=== PATIENT | female | born 1965 | race Caucasian/White ===

== ENCOUNTER → 2019-07-30 12:55 | Outpatient (BNVA) | payer OTHER, SELFPAY | PROVIDERS: Family Provider Family Medicine; PCP Family Medicine; Visit Provider Specialist | DX: F32.9 Major depressive disorder, single episode, unspecified (principal); G47.52 REM sleep behavior disorder; Z87.891 Personal history of nicotine dependence | CPT/HCPCS: 99214 ==

== ENCOUNTER 2019-08-09 13:16 | Emergency (ER) | payer OTHER, SELFPAY ==
[2019-08-09 13:23] VITALS: BP 173/112; PULSE 105; RESP 18; TEMP 36.6; O2SAT 94; BMI 37.8
[2019-08-09 13:40] LABS: Glucose Point of Care 369 mg/dL (70-110)
--- NOTE | 2019-08-09 14:06 | ED_ITS ---
HPI - General Adult General: Chief complaint: General Medical Stated complaint: high blood sugar Time Seen by Provider: 08/09/19 13:28 Source: patient Mode of arrival: ambulatory Limitations: no limitations History of Present Illness: HPI narrative: Patient is a 54-year-old female who presents to ED today after she was called by [facility] in [place] due to abnormalities on her preop lab work. Patient tells me she was scheduled to have a meniscus repaired on her left knee and had preop labs performed a few days ago. She was called today and told her blood glucose was 444. Patient has no history of diabetes. She does state her mother was recently diagnosed with diabetes. She does state several years ago she believes she might have been diagnosed with prediabetes and at one point was taking metformin however is no longer taking this. When asked patient has noticed an increase in thirst over the past several weeks, trouble concentrating, increased fatigue, one episode of vomiting. Onset (ago): week(s) Associated symptoms: Reports vomiting (x1); Deny chest pain, dyspnea, headache(s), malaise, nausea, rash, palpitations or syncope Review of Systems Const: Reports: fatigue; Denies: fever(s), chills, body aches, change in appetite, change in weight or malaise Eyes: Denies: change in vision, blurry vision, blind spots, photophobia, floaters or seeing flashes ENMT: Denies: throat pain, enlarged tonsils or odynophagia Card: Denies: chest pain, palpitations, irregular heart rhythm, edema, swelling of feet/ankles, lightheadedness, syncope, pre-syncope, dyspnea on exertion or orthopnea Resp: Denies: dyspnea, productive cough, non-productive cough, hemoptysis or chest congestion GI: Reports: vomiting (x1); Denies: abdominal pain, nausea, dysphagia, diarrhea or constipation : Denies: flank pain, difficulty voiding, dysuria, urinary frequency, urinary urgency or urinary hesitancy Musc: Denies: neck pain or back pain Skin/Breast: Denies: rash Neuro: Denies: headache(s), numbness in extremities or weakness in extremities Endo: Reports: polydipsia and tired all the time PFS ED PFSH: Family History Other Bleeding disorder CAD (coronary artery disease) Cancer Diabetes Hypertension Social History Smoking and tobacco status: light tobacco smoker Alcohol intake: never Physical Exam Const: COMMON NORMALS: no acute distress, patient oriented x3, no limitations and alert NUTRITIONAL APPEARANCE: obese ORIENTATION/CONSCIOUSNESS: Yes oriented to person, Yes oriented to place and Yes oriented to time Resp: COMMON NORMALS: normal respiratory effort and clear to auscultation bilaterally AUSCULTATION: clear to auscultation bilaterally Cardio: COMMON NORMALS: regular rate and regular rhythm RATE: regular rate RHYTHM: regular rhythm GI: COMMON NORMALS: Normal to inspection, nondistended, normoactive bowel sounds present, Soft to palpation, non-tender, No hepatosplenomegaly present and no masses PALPATION: Yes Soft to palpation and Yes No hepatosplenomegaly present Extremity: COMMON NORMALS: normal to inspection, full ROM, no clubbing, cyanosis or edema and no pedal edema Neuro: LINDA COMA SCALE: document GCS findings [place] coma scale eye opening: Spontaneous Linda coma scale verbal response: Orientated Linda coma scale motor response: Obey commands Linda coma scale total score: 15 COMMON NORMALS: patient oriented x3, CN's II-XII intact bilaterally, moves all extremities, no focal motor deficits, no sensory deficits noted and gait normal SENSORIUM/ORIENTATION: Yes alert, Yes oriented to person, Yes oriented to place and Yes oriented to time Skin: COMMON NORMALS: no rashes or lesions noted GENERAL SKIN EXAM: no rashes or lesions noted Course Vital Signs: Vital signs: Vital Signs Temperature 97.9 F 08/09/19 13:23 Pulse Rate 94 08/09/19 17:22 Respiratory Rate 14 08/09/19 17:22 Blood Pressure 125/94 08/09/19 17:22 Pulse Oximetry 97 08/09/19 17:22 MDM - General Adult MDM Narrative: Medical decision making narrative: Patient is a newly diagnosed type II diabetic. She has no signs of DKA on her work-up today. She was given 10 units of insulin and a liter of fluids. Glucose now in the 340s. Her hemoglobin A1c was over 12. I will go ahead and start patient on metformin twice daily. Discussed with her that it is imperative she follow-up with primary care as they need to write her for a glucometer and test strips and they will need to adjust patient's medications accordingly. Patient verbalized understanding. Lab Data: Labs: Lab Results 08/09/19 08/09/19 08/09/19 Range/Units 13:37 14:14 14:14 WBC 4.5 (4.0-10.0) 10^3/ uL RBC 4.52 (4.1-5.3) 10^6/u L Hgb 12.9 (11.5-15.3) g/dL Hct 39.5 (37.0-47.0) % MCV 87.4 (81-99) fL MCH 28.5 (28.0-34.0) pg MCHC 32.7 (30.0-36.0) g/dL RDW 12.2 (12.1-15.1) % Plt Count 202 (130-400) 10^3/c mm MPV 10.9 H (7.4-10.4) fL Neut % (Auto) 58.0 % Lymph % (Auto) 34.5 % Hardee % (Auto) 7.3 % Eos % (Auto) 0.0 % Baso % (Auto) 0.0 % Neut # (Auto) 2.6 (1.8-7.7) 10^3/u L Lymph # (Auto) 1.6 (0.8-4.8) 10^3/u L Hardee # (Auto) 0.3 (0.2-0.9) 10^3/u L Eos # (Auto) 0.0 (0.0-0.8) 10^3/u L Baso # (Auto) 0.0 (0.0-0.1) 10^3/u L Nucleated RBC % (a uto) 0 % Nucleated RBCs # 0.0 /100WBC Specimen Type Sample Site ABG pH (7.35-7.45) ABG pCO2 (35-45) mmHg ABG pO2 (80.0-100.0) mmH g ABG HCO3 (22-26) mmol/L ABG O2 Saturation ABG Base Excess (-2.0-2.0) mmol/ L Chato Test A-a O2 Gradient (5-10) mmHg Hematocrit (37-47) % Hgb O2 Saturation (95-100) % Carboxyhemoglobin (0.4-20.1) %THgb Methemoglobin (0.4-1.5) % Total Hemoglobin (12-16) g/dL Ionized Calcium (1.1-1.4) mmol/L O2 Delivery Device FiO2 % Wood Milling Machine Hand ID Sodium 134 L (136-145) mmol/L Potassium 4.4 (3.5-5.1) mmol/L Chloride 97 L (98-107) mmol/L Carbon Dioxide 23 (22-29) mmol/L Anion Gap 18.4 (5-19) BUN 7 (6-20) mg/dL Creatinine 1.0 H (0.5-0.9) mg/dL GFR Calculation 57.8 L (90-130) mL/min Glucose 388 H (65-115) mg/dL POC Glucose 369 (70-110) mg/dL Estimat Average Gl ucose Hemoglobin A1c (4.0-6.0) % Calculated Osmolal ity 290 (285-295) mOsm/k g Calcium 9.5 (8.5-10.5) mg/dL Total Bilirubin 0.3 (0.15-1.2) mg/dL AST 24 (0-32) U/L ALT 29 (0-33) U/L Alkaline Phosphata se 94 (35-105) IU/L Total Protein 6.9 (6.6-8.7) g/dL Albumin 4.0 (3.5-5.2) g/dL Globulin 2.9 (1.3-4.6) g/dL Serum Ketones (Negative) 08/09/19 08/09/19 08/09/19 Range/Units 14:14 14:14 14:30 WBC (4.0-10.0) 10^3/ uL RBC (4.1-5.3) 10^6/u L Hgb (11.5-15.3) g/dL Hct (37.0-47.0) % MCV (81-99) fL MCH (28.0-34.0) pg MCHC (30.0-36.0) g/dL RDW (12.1-15.1) % Plt Count (130-400) 10^3/c mm MPV (7.4-10.4) fL Neut % (Auto) % Lymph % (Auto) % [place]ee % (Auto) % Eos % (Auto) % Baso % (Auto) % Neut # (Auto) (1.8-7.7) 10^3/u L Lymph # (Auto) (0.8-4.8) 10^3/u L [place]ee # (Auto) (0.2-0.9) 10^3/u L Eos # (Auto) (0.0-0.8) 10^3/u L Baso # (Auto) (0.0-0.1) 10^3/u L Nucleated RBC % (a uto) % Nucleated RBCs # /100WBC Specimen Type Arterial Sample Site Radial, left ABG pH 7.38 (7.35-7.45) ABG pCO2 40.9 (35-45) mmHg ABG pO2 67.0 L (80.0-100.0) mmH g ABG HCO3 24.0 (22-26) mmol/L ABG O2 Saturation 93.9 ABG Base Excess -1.2 (-2.0-2.0) mmol/ L Chato Test Pos A-a O2 Gradient 31.0 H (5-10) mmHg Hematocrit 39.3 (37-47) % Hgb O2 Saturation 92.1 L (95-100) % Carboxyhemoglobin 0.8 (0.4-20.1) %THgb Methemoglobin 1.0 (0.4-1.5) % Total Hemoglobin 12.8 (12-16) g/dL Ionized Calcium 1.2 (1.1-1.4) mmol/L O2 Delivery Device Room air FiO2 21.0 % Wood Milling Machine Hand ID cak Sodium 135.0 (136-145) mmol/L Potassium 4.3 (3.5-5.1) mmol/L Chloride (98-107) mmol/L Carbon Dioxide (22-29) mmol/L Anion Gap (5-19) BUN (6-20) mg/dL Creatinine (0.5-0.9) mg/dL GFR Calculation (90-130) mL/min Glucose 402.0 H (65-115) mg/dL POC Glucose (70-110) mg/dL Estimat Average Gl ucose 321 Hemoglobin A1c 12.8 H (4.0-6.0) % Calculated Osmolal ity (285-295) mOsm/k g Calcium (8.5-10.5) mg/dL Total Bilirubin (0.15-1.2) mg/dL AST (0-32) U/L ALT (0-33) U/L Alkaline Phosphata se (35-105) IU/L Total Protein (6.6-8.7) g/dL Albumin (3.5-5.2) g/dL Globulin (1.3-4.6) g/dL Serum Ketones Negative (Negative) 08/09/19 08/09/19 Range/Units 15:45 16:59 WBC (4.0-10.0) 10^3/ uL RBC (4.1-5.3) 10^6/u L Hgb (11.5-15.3) g/dL Hct (37.0-47.0) % MCV (81-99) fL MCH (28.0-34.0) pg MCHC (30.0-36.0) g/dL RDW (12.1-15.1) % Plt Count (130-400) 10^3/c mm MPV (7.4-10.4) fL Neut % (Auto) % Lymph % (Auto) % [place] % (Auto) % Eos % (Auto) % Baso % (Auto) % Neut # (Auto) (1.8-7.7) 10^3/u L Lymph # (Auto) (0.8-4.8) 10^3/u L Hardee # (Auto) (0.2-0.9) 10^3/u L Eos # (Auto) (0.0-0.8) 10^3/u L Baso # (Auto) (0.0-0.1) 10^3/u L Nucleated RBC % (a uto) % Nucleated RBCs # /100WBC Specimen Type Sample Site ABG pH (7.35-7.45) ABG pCO2 (35-45) mmHg ABG pO2 (80.0-100.0) mmH g ABG HCO3 (22-26) mmol/L ABG O2 Saturation ABG Base Excess (-2.0-2.0) mmol/ L Chato Test A-a O2 Gradient (5-10) mmHg Hematocrit (37-47) % Hgb O2 Saturation (95-100) % Carboxyhemoglobin (0.4-20.1) %THgb Methemoglobin (0.4-1.5) % Total Hemoglobin (12-16) g/dL Ionized Calcium (1.1-1.4) mmol/L O2 Delivery Device FiO2 % Wood Milling Machine Hand ID Sodium (136-145) mmol/L Potassium (3.5-5.1) mmol/L Chloride (98-107) mmol/L Carbon Dioxide (22-29) mmol/L Anion Gap (5-19) BUN (6-20) mg/dL Creatinine (0.5-0.9) mg/dL GFR Calculation (90-130) mL/min Glucose (65-115) mg/dL POC Glucose 360 340 (70-110) mg/dL Estimat Average Gl ucose Hemoglobin A1c (4.0-6.0) % Calculated Osmolal ity (285-295) mOsm/k g Calcium (8.5-10.5) mg/dL Total Bilirubin (0.15-1.2) mg/dL AST (0-32) U/L ALT (0-33) U/L Alkaline Phosphata se (35-105) IU/L Total Protein (6.6-8.7) g/dL Albumin (3.5-5.2) g/dL Globulin (1.3-4.6) g/dL Serum Ketones (Negative) Discharge Plan Discharge Patient Disposition: Home, Self-Care Clinical Impression: New onset type 2 diabetes mellitus Condition: Stable Prescriptions: New metformin 500 mg tablet 500 mg PO BID Qty: 60 RF: 0 No Action estradiol 1 mg tablet 1 mg PO DAILY RF: 0 lisinopril 10 mg tablet 10 mg PO BID RF: 0 desloratadine 5 mg tablet 5 mg PO DAILY RF: 0 pantoprazole 40 mg tablet,delayed release (DR/EC) 40 mg PO DAILY RF: 0 simvastatin 10 mg tablet 10 mg PO DAILY RF: 0 coenzyme I06-ghwpdal E 100-100 mg-unit capsule PO RF: 0 fenofibrate 54 mg tablet 54 mg PO DAILY RF: 0 venlafaxine [Effexor XR] 37.5 mg capsule,extended release 24hr 37.5 mg PO DAILY RF: 0 venlafaxine 150 mg capsule,extended release 24hr 150 mg PO DAILY RF: 0 venlafaxine 75 mg capsule,extended release 24hr 75 mg PO DAILY RF: 0 levocetirizine [Allergy Relief (levocetirizin)] 5 mg tablet 5 mg PO DAILY RF: 0 memantine [Namenda] 10 mg tablet 10 mg PO BID Qty: 180 RF: 1 clonazepam [Klonopin] 2 mg tablet 2 mg PO DAILY Qty: 30 RF: 5 Discharge Orders: Discharge Order (Routine); Ordered 08/09/19 Ordered By: Yareli Harding Referrals: James Munoz MD [Primary Care Provider] - Patient Instructions: Type 2 Diabetes, Diabetes Mellitus Type 2 in Adults (ED) Activity Restrictions/Additional Instructions: We will start you on metformin today but as discussed it is imperative that you follow-up with primary care as they will need to further manage your sugars and adjust medications accordingly. 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
[2019-08-09 14:15] VITALS: BP 151/96; PULSE 102; RESP 15; O2SAT 96
[2019-08-09 14:30] LABS: Hematocrit 39.5 % (37.0-47.0); Hemoglobin 12.9 g/dL (11.5-15.3); Lymphocytes # 1.6 10^3/uL (0.8-4.8); Lymphocytes % 34.5 %; Mean Corpuscular HGB Conc 32.7 g/dL (30.0-36.0); Mean Corpuscular Hemoglobin 28.5 pg (28.0-34.0); Mean Corpuscular Volume 87.4 fL (81-99); Mean Platelet Volume 10.9 fL (7.4-10.4); Monocytes # 0.3 10^3/uL (0.2-0.9); Monocytes % 7.3 %; Neutrophils # 2.6 10^3/uL (1.8-7.7); Nucleated Red Blood Cells % 0 %; Platelet Count 202 10^3/cmm (130-400); Red Blood Count 4.52 10^6/uL (4.1-5.3); Red Cell Distribution Width 12.2 % (12.1-15.1); White Blood Count 4.5 10^3/uL (4.0-10.0)
[2019-08-09] MEDS: insulin regular-human 100 units/1 mL 5 UNIT IVP ×2 (14:31→16:14)
[2019-08-09] MEDS: sodium chloride 0.9% 1,000 ML 999 ML IV (14:31)
[2019-08-09 14:35] LABS: Ketone (Acetest) Serum Negative (Negative)
[2019-08-09 14:43] LABS: ABG PCO2 40.9 mmHg (35-45); ABG PH Result 7.38 (7.35-7.45); Arterial Blood Gas Hematocrit 39.3 % (37-47); Base Excess ABG -1.2 mmol/L (-2.0-2.0); Blood Gas Allen Test Pos; Blood Gas Sample Site Radial, left; Blood Gas Sample Type Arterial; Carboxyhemoglobin 0.8 %THgb (0.4-20.1); HGB O2 Sat 92.1 % (95-100); Ionized Calcium Level - ABG 1.2 mmol/L (1.1-1.4); Oxygen Device ROOM AIR; Oxygen Saturation ABG 93.9; Potassium Level - ABG 4.3 mmol/L (3.5-5.0); Total Hemoglobin 12.8 g/dL (12-16)
[2019-08-09 14:44] LABS: Alanine Aminotransferase 29 U/L (0-33); Alkaline Phosphatase 94 IU/L (35-105); Anion Gap 18.4 (5-19); Aspartate Amino Transferase 24 U/L (0-32); Blood Urea Nitrogen 7 mg/dL (6-20); Calcium 9.5 mg/dL (8.5-10.5); Carbon Dioxide 23 mmol/L (22-29); Chloride 97 mmol/L (98-107); Globulin 2.9 g/dL (1.3-4.6); Glomerular Filtration Rate 57.8 mL/min (90-130); Glucose 388 mg/dL (65-115); Osmolality Calculated 290 mOsm/kg (285-295); Potassium 4.4 mmol/L (3.5-5.1); Sodium 134 mmol/L (136-145); Total Bilirubin 0.3 mg/dL (0.15-1.2); Total Protein 6.9 g/dL (6.6-8.7)
[2019-08-09 15:49] LABS: Glucose Point of Care 360 mg/dL (70-110)
[2019-08-09 16:16] VITALS: BP 139/91; PULSE 96; RESP 14; O2SAT 98
[2019-08-09 17:02] LABS: Glucose Point of Care 340 mg/dL (70-110)
[2019-08-09 17:15] LABS: Estmated Average Glucose 321; Hemoglobin A1C 12.8 % (4.0-6.0)
[2019-08-09 17:22] VITALS: BP 125/94; PULSE 94; RESP 14; O2SAT 97
== END 2019-08-09 17:22 | disposition home or self-care (01) ==
PROVIDERS: Emergency Provider Physician Assistant; PCP Family Medicine
DX: E11.9 Type 2 diabetes mellitus without complications (principal); F17.210 Nicotine dependence, cigarettes, uncomplicated
CPT/HCPCS: 12345; 36416; 36600; 80051; 80053; 82009; 82810; 82962; 83036; 83986; 85025; 96361; 96374; 96376; 99283; J1815; J7030

== ENCOUNTER → 2019-09-24 14:37 | Outpatient (BNVA) | payer OTHER, SELFPAY | PROVIDERS: PCP Family Medicine; Visit Provider Family Medicine | DX: E11.65 Type 2 diabetes mellitus with hyperglycemia (principal); I10 Essential (primary) hypertension | CPT/HCPCS: 80053 ==

== ENCOUNTER → 2019-10-23 09:11 | Outpatient (BNVA) | payer OTHER, SELFPAY | PROVIDERS: PCP Family Medicine; Visit Provider Family Medicine | DX: E11.65 Type 2 diabetes mellitus with hyperglycemia | CPT/HCPCS: 80048 ==

== ENCOUNTER → 2019-11-27 12:17 | Outpatient (BNVA) | payer OTHER, SELFPAY | PROVIDERS: PCP Family Medicine; Visit Provider Family Medicine | DX: E11.65 Type 2 diabetes mellitus with hyperglycemia (principal); I10 Essential (primary) hypertension; K21.9 Gastro-esophageal reflux disease without esophagitis; Z68.33 Body mass index [BMI] 33.0-33.9, adult; F17.211 Nicotine dependence, cigarettes, in remission | CPT/HCPCS: 80053; 83036 ==

== ENCOUNTER → 2019-12-31 11:39 | Outpatient (BNVA) | payer OTHER, SELFPAY | PROVIDERS: PCP Family Medicine; Visit Provider Nurse Practitioner Family | DX: Z11.59 Encounter for screening for other viral diseases (principal); J06.9 Acute upper respiratory infection, unspecified; Z20.828 Contact with and (suspected) exposure to other viral communicable diseases | CPT/HCPCS: 87635 ==

== ENCOUNTER → 2020-02-04 14:58 | Outpatient (BNVA) | payer OTHER, SELFPAY | PROVIDERS: PCP Family Medicine; Visit Provider Specialist | DX: G47.52 REM sleep behavior disorder (principal); G43.009 Migraine without aura, not intractable, without status migrainosus; Z76.89 Persons encountering health services in other specified circumstances; Z87.891 Personal history of nicotine dependence | CPT/HCPCS: 99213 ==

== ENCOUNTER → 2020-03-10 10:45 | Outpatient (BNVA) | payer OTHER, SELFPAY | PROVIDERS: PCP Family Medicine; Visit Provider Family Medicine | DX: I10 Essential (primary) hypertension (principal); E78.2 Mixed hyperlipidemia; E11.9 Type 2 diabetes mellitus without complications | CPT/HCPCS: 80053; 80061; 81015; 82043; 83036; 85025 ==

== ENCOUNTER 2020-03-23 13:04 | Outpatient (CLI) | payer OTHER, SELFPAY ==
--- NOTE | 2020-03-23 13:08 | MM_ITS ---
WS: [id number] SCREENING DIGITAL MAMMOGRAM WITH CAD HISTORY: Breast Cancer Screening COMPARISON: 03/16/2017, 05/06/2015 Bilateral CC and MLO views submitted. Computer aided detection analyzed. Breast composition: The breasts are heterogeneously dense, which may obscure small masses. 13 mm nodu le is stable in the anterior lateral RIGHT breast. Since the most recent exam there are new nodules n oted best on the LEFT CC projection central to the nipple. Largest nodule measures 17 mm. These were not present on the most recent study but similar nodules were present on the study from 2013. There i s an additional 5 mm nodule in the medial inferior LEFT breast. Additional benign calcifications in e ach breast. MM/[place] [id number] IMPRESSION: BI-RADS: 0-Incomplete: Need additional imaging evaluation FOLLOW UP: Need Additional Imaging LEFT breast: Spot compression views (CC and MLO). True ML. Ultrasound to follow if abnormality persists.
== END 2020-03-23 13:05 | disposition home or self-care (01) ==
PROVIDERS: PCP Family Medicine; Visit Provider Obstetrics & Gynecology
DX: Z12.31 Encounter for screening mammogram for malignant neoplasm of breast (principal); N64.89 Other specified disorders of breast; N63.10 Unspecified lump in the right breast, unspecified quadrant
CPT/HCPCS: 77067

== ENCOUNTER 2020-04-24 07:54 | Outpatient (CLI) | payer OTHER, SELFPAY ==
--- NOTE | 2020-04-24 08:00 | MM_ITS ---
WS: [id number] ADDITIONAL VIEWS LEFT MAMMOGRAM LEFT BREAST ULTRASOUND, complete HISTORY: N63.0 - Unspecified lump in unspecified breast COMPARISON: 03/23/2020, 03/16/2017 and 01/04/2016 LEFT MAMMOGRAM: Spot compression views and true ML. There are multiple ill-defined and partially obscured nodules within the LEFT LEFT breast. The larges t at 11:00 with a maximum diameter of 2.1 cm. This area is new since the prior study. There are addit ional partially obscured nodules which are smaller in size in the upper inner quadrant and also later ally. Some of these have been present on prior studies. LEFT BREAST ULTRASOUND 2-D and color Doppler imaging submitted. The large nodule in the LEFT breast at 11:00, 2 cm from the nipple measures 1.8 x 0.9 x 1.5 cm and is a simple cyst. Several hypoechoic well-circumscribed nodules at 11:00, 2:00 and 6:00. These nodules are solid and hypoechoic with well circumscribed margins. 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 These are not simple cysts. Due to the multip licity and similar appearance suspect these are benign. MM/[place] [id number] IMPRESSION: BI-RADS: 2-Benign FOLLOW UP: 1 Year Follow-up
--- NOTE | 2020-04-24 08:45 | US_ITS ---
WS: [id number] ADDITIONAL VIEWS LEFT MAMMOGRAM LEFT BREAST ULTRASOUND, complete HISTORY: N63.0 - Unspecified lump in unspecified breast COMPARISON: 03/23/2020, 03/16/2017 and 01/04/2016 LEFT MAMMOGRAM: Spot compression views and true ML. There are multiple ill-defined and partially obscured nodules within the LEFT LEFT breast. The larges t at 11:00 with a maximum diameter of 2.1 cm. This area is new since the prior study. There are addit ional partially obscured nodules which are smaller in size in the upper inner quadrant and also later ally. Some of these have been present on prior studies. LEFT BREAST ULTRASOUND 2-D and color Doppler imaging submitted. The large nodule in the LEFT breast at 11:00, 2 cm from the nipple measures 1.8 x 0.9 x 1.5 cm and is a simple cyst. Several hypoechoic well-circumscribed nodules at 11:00, 2:00 and 6:00. These nodules are solid and hypoechoic with well circumscribed margins. 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 These are not simple cysts. Due to the multip licity and similar appearance suspect these are benign. US/[place] breast [place] complete [id number] IMPRESSION: BI-RADS: 2-Benign FOLLOW UP: 1 Year Follow-up
== END 2020-04-24 07:55 | disposition home or self-care (01) ==
LOC: RADSHAW 07:58
PROVIDERS: PCP Family Medicine; Visit Provider Obstetrics & Gynecology
DX: N63.22 Unspecified lump in the left breast, upper inner quadrant (principal)
CPT/HCPCS: 76641; 77065

== ENCOUNTER 2020-07-09 16:59 | Outpatient (CLI) | payer OTHER, SELFPAY ==
[2020-07-09 18:12] LABS: Alanine Aminotransferase 13 U/L (0-33); Albumin Level 4.2 g/dL (3.5-5.2); Alkaline Phosphatase 61 IU/L (35-105); Anion Gap 13.2 (5-19); Aspartate Amino Transferase 15 U/L (0-32); Blood Urea Nitrogen 12 mg/dL (6-20); Calcium 8.7 mg/dL (8.5-10.5); Carbon Dioxide 24 mmol/L (22-29); Chloride 105 mmol/L (98-107); Globulin 2.6 g/dL (1.3-4.6); Glomerular Filtration Rate 46.6 mL/min (90-130); Glucose 101 mg/dL (65-115); Osmolality Calculated 286 mOsm/kg (285-295); Potassium 4.2 mmol/L (3.5-5.1); Sodium 138 mmol/L (136-145); Total Bilirubin 0.3 mg/dL (0.15-1.2); Total Protein 6.8 g/dL (6.6-8.7)
[2020-07-09 19:59] LABS: Estmated Average Glucose 114; Hemoglobin A1C 5.6 % (4.0-6.0)
== END 2020-07-09 17:00 | disposition home or self-care (01) ==
PROVIDERS: PCP Family Medicine; Visit Provider Family Medicine
DX: E11.9 Type 2 diabetes mellitus without complications (principal)
CPT/HCPCS: 80053; 83036

== ENCOUNTER → 2020-08-05 15:14 | Outpatient (BNVA) | payer OTHER, SELFPAY | PROVIDERS: PCP Family Medicine; Visit Provider Specialist | DX: G47.52 REM sleep behavior disorder (principal); G43.009 Migraine without aura, not intractable, without status migrainosus; Z87.891 Personal history of nicotine dependence | CPT/HCPCS: 99213 ==

== ENCOUNTER → 2020-09-02 11:19 | Outpatient (BNVA) | payer OTHER, SELFPAY | PROVIDERS: PCP Family Medicine; Visit Provider Family Medicine | DX: E11.9 Type 2 diabetes mellitus without complications (principal); I10 Essential (primary) hypertension; E78.2 Mixed hyperlipidemia | CPT/HCPCS: 80048; 83036 ==

== ENCOUNTER → 2021-02-08 08:16 | Outpatient (BNVA) | payer OTHER, SELFPAY | PROVIDERS: PCP Family Medicine; Visit Provider Nurse Practitioner | DX: G47.52 REM sleep behavior disorder (principal); G31.84 Mild cognitive impairment of uncertain or unknown etiology | CPT/HCPCS: 99203; 99214 ==

== ENCOUNTER → 2021-03-03 10:19 | Outpatient (BNVA) | payer OTHER, SELFPAY | PROVIDERS: PCP Family Medicine; Visit Provider Family Medicine | DX: I10 Essential (primary) hypertension (principal); E78.2 Mixed hyperlipidemia; E11.9 Type 2 diabetes mellitus without complications | CPT/HCPCS: 80053; 80061; 82043; 83036; 85025 ==

== ENCOUNTER 2021-06-21 18:30 | Emergency (ER) | payer OTHER, SELFPAY ==
[2021-06-21 18:45] VITALS: BP 158/110; PULSE 92; RESP 18; TEMP 36.8; O2SAT 97; BMI 35.6
--- NOTE | 2021-06-21 18:52 | ECG_ITS ---
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 Measurements Intervals [place] Rate: 96 P: 75 [place]: 125 QRS: 52 QRSD: 81 T: 61 QT: 353 QTc: 448 Interpretive Statements SINUS RHYTHM NONSPECIFIC T-WAVE ABNORMALITY Compared to ECG 06/17/2018 16:05:50 T-wave abnormality now present Electronically Signed On 06-21-2021 22:00:21 CDT by Jame Sullivan M.D. [id number]
--- NOTE | 2021-06-21 18:52 | XRR_ITS ---
PROCEDURE INFORMATION: Exam: XR Chest Exam date and time: 06/21/2021 8:54 PM Age: 56 years old Clinical indication: Pain; Angina pectoris; Additional info: Cp TECHNIQUE: Imaging protocol: XR of the chest. Views: 1 view. COMPARISON: CR Chest 1 [place] [id number] 06/17/2018 4:12 PM FINDINGS: Lungs: Unremarkable. No consolidation. Pleural spaces: Unremarkable. No pleural effusion. No pneumothorax. Heart/Mediastinum: Unremarkable. No cardiomegaly. Bones/joints: Unremarkable. XR/XR chest 1V portable [id number] IMPRESSION: No change, unremarkable
--- NOTE | 2021-06-21 20:52 | ECG_ITS ---
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 Measurements Intervals [place] Rate: 94 P: 81 [place]: 138 QRS: 57 QRSD: 86 T: 71 QT: 366 QTc: 458 Interpretive Statements SINUS RHYTHM NONSPECIFIC T-WAVE ABNORMALITY Compared to ECG 06/21/2021 20:08:54 No significant changes Electronically Signed On 06-21-2021 22:04:03 CDT by Jame Sullivan M.D. [id number]
--- NOTE | 2021-06-21 21:24 | ED_ITS ---
HPI - General Adult General: Chief complaint: General Medical Stated complaint: High Blood Presure Time Seen by Provider: 06/21/21 21:17 Source: patient Mode of arrival: ambulatory Limitations: no limitations History of Present Illness: 56-year-old female who states that she has a history of high blood pressure takes 10 mg lisinopril twice a day for her blood pressure states over the last week its been running higher than normal. States been running in the 160s 170s been having some slight right-sided chest pain and mild headaches with it. She states that it has consistently been running higher than normal. She denies any worsening improving factors states the pain is mild in the right side her chest feels like a sore pain and worse with palpation denies severe headache denies any dyspnea. Associated symptoms: Reports chest pain and headache(s); Deny dyspnea, nausea, rash or vomiting Review of Systems Const: Denies: fever(s), chills, body aches or change in appetite Eyes: Denies: blurry vision or eye discomfort ENMT: Denies: throat pain or dental pain Card: Reports: chest pain Resp: Denies: dyspnea GI: Denies: abdominal pain, nausea, vomiting or diarrhea : Denies: dysuria Musc: Denies: neck pain or back pain Skin/Breast: Denies: rash Neuro: Reports: headache(s) Psych: Denies: depression Silverio/Lymph: Denies: easy bruising All/Imm: Denies: urticaria PFSH ED PFSH: Medical History Acute adjustment disorder with anxiety Atypical chest pain Cervical disc disorder Common migraine without intractability Controlled REM sleep behavior disorder GERD (gastroesophageal reflux disease) History of nonmelanoma skin cancer HTN (hypertension) Hyperlipidemia Hypersomnia Mild cognitive disorder Neck pain Obstructive sleep apnea Sprain of left ankle Surgical menopause Type 2 diabetes mellitus, without long-term current use of insulin Surgical History H/O breast surgery Excision of right breast mass H/O dilation and curettage 2008 H/O knee surgery H/O knee surgery H/O left knee surgery 05/2020- left meniscus repair H/O tubal ligation H/O: hysterectomy History of lumpectomy of both breasts History of nasal surgery History of tonsillectomy and adenoidectomy S/P endometrial ablation [employer]- Dr. Cohen 2008 Family History Family/Other Breast cancer paternal aunt Mother Diabetes Heart disease Hypertension Father Heart disease Brother Heart disease Sister Heart disease Social History Smoking and tobacco status: former smoker Alcohol intake: never Physical Exam Const: COMMON NORMALS: no acute distress, patient oriented x3 and healthy appearing HENMT: COMMON NORMALS: normocephalic and atraumatic HEAD & SCALP: normocephalic and atraumatic Eye: COMMON NORMALS: Equal, round and reactive pupils present and EOMs intact bilaterally PUPIL: Yes Equal, round and reactive pupils present Neck/C-Spine: COMMON NORMALS: full ROM and supple Chest: COMMONS NORMALS: normal inspection of the chest and normal palpation of entire chest wall Resp: COMMON NORMALS: normal respiratory effort, No retractions, No use of accessory muscles and clear to auscultation bilaterally AUSCULTATION: clear to auscultation bilaterally Cardio: COMMON NORMALS: regular rate, regular rhythm and No murmurs present (Cardio) RATE: regular rate RHYTHM: regular rhythm GI: COMMON NORMALS: Normal to inspection, nondistended, normoactive bowel sounds present, Soft to palpation, non-tender and no masses PALPATION: Yes Soft to palpation Extremity: COMMON NORMALS: normal to inspection and full ROM Neuro: COMMON NORMALS: patient oriented x3, moves all extremities and no focal motor deficits Psych: COMMON NORMALS: mental status grossly normal, Normal thought process present and cooperative THOUGHT PROCESS: Normal thought process present Skin: COMMON NORMALS: no rashes or lesions noted and no wounds GENERAL SKIN EXAM: no rashes or lesions noted Course Vital Signs: Vital signs: Vital Signs Temperature 98.2 F 06/21/21 18:45 Pulse Rate 94 06/21/21 21:42 Respiratory Rate 18 06/21/21 21:42 Blood Pressure 134/84 06/21/21 21:42 Pulse Oximetry 95 06/21/21 21:42 [facility] - General Adult Medical Decision Making Patient presents here with high blood pressure her chest pain here is atypical she is point tender on the right side of her chest reproduces her pain EKG x-ray and troponin are all normal we will start her on Norvasc she is to follow-up with PCP and return if worsening she understands agrees to plan. Lab Data : 06/21/21 21:37 06/21/21 21:37 Radiology Impressions Chest X-Ray 06/21/21 18:52 IMPRESSION: No change, unremarkable Laboratory Results WBC 6.7 10^3/uL (4.0-10.0) 06/21/21 21:37 RBC 4.65 10^6/uL (4.1-5.3) 06/21/21 21:37 Hgb 12.5 g/dL (11.5-15.3) 06/21/21 21:37 Hct 38.9 % (37.0-47.0) 06/21/21 21: MCV 83.7 fl (81-99) 06/21/21 21:37 MCH 26.9 pg (28.0-34.0) L 06/21/21 21: MCHC 32.1 g/dL (30.0-36.0) 06/21/21 21:37 RDW 13.2 % (12.1-15.1) 06/21/21 21:37 Plt Count 346 10^3/cmm (130-400) 06/21/21 21:37 MPV 9.8 fL (7.4-10.4) 06/21/21 21:37 Neut % (Auto) 46.8 % 06/21/21 21:37 Lymph % (Auto) 43.0 % 06/21/21 21:37 [place] % (Auto) 9.8 % 06/21/21 21:37 Eos % (Auto) 0.0 % 06/21/21 21:37 Baso % (Auto) 0.1 % 06/21/21 21:37 Neut # (Auto) 3.14 10^3/uL (1.8-7.7) 06/21/21 21:37 Lymph # (Auto) 2.9 10^3/uL (0.8-4.8) 06/21/21 21:37 [place] # (Auto) 0.7 10^3/uL (0.2-0.9) 06/21/21 21:37 Eos # (Auto) 0.0 10^3/uL (0.0-0.8) 06/21/21 21:37 Baso # (Auto) 0.0 10^3/uL (0.0-0.1) 06/21/21 21:37 Nucleated RBC % (auto) 0 % 06/21/21 21:37 Nucleated RBCs # 0.0 /100WBC 06/21/21 21:37 Sodium 136 mmol/L (136-145) 06/21/21 21:37 Potassium 4.0 mmol/L (3.5-5.1) 06/21/21 21:37 Chloride 101 mmol/L (98-107) 06/21/21 21:37 Carbon Dioxide 24 mmol/L (22-29) 06/21/21 21:37 Anion Gap 15.0 (5-19) 06/21/21 21:37 BUN 10 mg/dL (6-20) 06/21/21 21:37 Calcium 9.1 mg/dL (8.5-10.5) 06/21/21 21:37 Total Bilirubin 0.3 mg/dL (0.15-1.2) 06/21/21 21:37 AST 13 U/L (0-32) 06/21/21 21:37 ALT 13 U/L (0-33) 06/21/21 21:37 Alkaline Phosphatase 95 IU/L (35-105) 06/21/21 21:37 Troponin T Baseline 9 ng/L (0-10) 06/21/21 21:37 Total Protein 6.8 g/dL (6.6-8.7) 06/21/21 21:37 Albumin 4.3 g/dL (3.5-5.2) 06/21/21 21:37 Globulin 2.5 g/dL (1.3-4.6) 06/21/21 21:37 EKG Data EKG 1: I personally reviewed and interpreted this EKG as follows: EKG interpretation date: 06/21/21 EKG interpretation time: 21:58 Interpretation: nsr hr [address] or t wave abnormalities qrs 86 qtc 417 Computer generated interpretation: Chest X-Ray 06/21/21 18:52 IMPRESSION: No change, unremarkable Discharge Plan Discharge Patient Disposition: Home Clinical Impression: HTN (hypertension), Chest pain Condition: Stable Prescriptions: New Norvasc 5 mg tablet 5 mg PO DAILY Qty: 30 0RF No Action coenzyme [id number] E 100-100 mg-unit capsule 1 cap PO DAILY 0RF (DME) FreeStyle Mar 14 Day Sensor Kit See Rx Instructions .ROUTE .MEDSUPPLY Qty: 1 4RF Rx Instructions: As directed (DME) FreeStyle Mar 14 Day [place] Misc See Rx Instructions .ROUTE .MEDSUPPLY Qty: 1 0RF Rx Instructions: As directed brexpiprazole 0.5 mg tablet 0.5 mg PO DAILY Qty: 90 0RF azithromycin [Zithromax Z-Tyrone] 250 mg tablet See Rx Instructions PO .COMPLEX Qty: 6 0RF Rx Instructions: For 250 mg dose pack: take 500 mg today (day 1), then 250 mg for 4 days (days 2-5) PO estradiol 1 mg tablet 1 mg PO DAILY 90 Days Qty: 90 3RF simvastatin 20 mg tablet 20 mg PO DAILY 90 Days Qty: 90 1RF Ozempic 0.25 mg or 0.5 mg(2 mg/1.5 mL) pen injector 0.5 mg SUBCUT .once weekly 90 Days Qty: 3 1RF fenofibrate 54 mg tablet 54 mg PO DAILY 90 Days Qty: 90 1RF lisinopril 10 mg tablet 10 mg PO BID Qty: 180 1RF venlafaxine 150 mg capsule,extended release 24hr See Rx Instructions .ROUTE .COMPLEX Qty: 90 1RF Dose Instruction: TAKE 1 CAPSULE BY MOUTH EVERY DAY TAKE WITH 75MG Rx Instructions: TAKE 1 CAPSULE BY MOUTH EVERY DAY TAKE WITH 75MG venlafaxine 75 mg capsule,extended release 24hr See Rx Instructions .ROUTE .COMPLEX Qty: 90 1RF Dose Instruction: TAKE 1 CAPSULE BY MOUTH EVERY DAY Rx Instructions: TAKE 1 CAPSULE BY MOUTH EVERY DAY pantoprazole 40 mg tablet,delayed release (DR/EC) 40 mg PO BID 0RF clonazepam 2 mg tablet 2 mg PO BEDTIME 0RF memantine 10 mg tablet 10 mg PO BID 0RF levocetirizine 5 mg tablet 5 mg PO DAILY 0RF Discharge Orders: Discharge ED (Routine); Ordered 06/21/21 Ordered By: Heron Nam Referrals: Yessi Valenzuela DO [Primary Care Provider] - 1-3 days Discharge Diet: Advance as tolerated Discharge Activity: Resume usual activity Patient Instructions: Hypertension (ED) Coding Level of Care Code ED Ion Implant Machine Operator for Chg Fwd Exam Comprehensive
[2021-06-21 21:42] VITALS: BP 134/84; PULSE 94; RESP 18; O2SAT 95
[2021-06-21 21:47] LABS: Basophils % 0.1 %; Hematocrit 38.9 % (37.0-47.0); Hemoglobin 12.5 g/dL (11.5-15.3); Lymphocytes # 2.9 10^3/uL (0.8-4.8); Mean Corpuscular HGB Conc 32.1 g/dL (30.0-36.0); Mean Corpuscular Hemoglobin 26.9 pg (28.0-34.0); Mean Corpuscular Volume 83.7 fl (81-99); Mean Platelet Volume 9.8 fL (7.4-10.4); Monocytes # 0.7 10^3/uL (0.2-0.9); Monocytes % 9.8 %; Neutrophils # 3.14 10^3/uL (1.8-7.7); Neutrophils % 46.8 %; Nucleated Red Blood Cells % 0 %; Platelet Count 346 10^3/cmm (130-400); Red Blood Count 4.65 10^6/uL (4.1-5.3); Red Cell Distribution Width 13.2 % (12.1-15.1); White Blood Count 6.7 10^3/uL (4.0-10.0)
[2021-06-21 22:12] LABS: Alanine Aminotransferase 13 U/L (0-33); Albumin Level 4.3 g/dL (3.5-5.2); Alkaline Phosphatase 95 IU/L (35-105); Aspartate Amino Transferase 13 U/L (0-32); Blood Urea Nitrogen 10 mg/dL (6-20); Calcium 9.1 mg/dL (8.5-10.5); Carbon Dioxide 24 mmol/L (22-29); Chloride 101 mmol/L (98-107); Globulin 2.5 g/dL (1.3-4.6); Glomerular Filtration Rate 57.4 mL/min (90-130); Glucose 138 mg/dL (65-115); Osmolality Calculated 283 mOsm/kg (285-295); Sodium 136 mmol/L (136-145); Total Bilirubin 0.3 mg/dL (0.15-1.2); Total Protein 6.8 g/dL (6.6-8.7); Troponin(5th) Baseline 9 ng/L (0-10)
[2021-06-21 22:33] VITALS: BP 139/94; PULSE 92; RESP 18; O2SAT 95
== END 2021-06-21 22:34 | disposition home or self-care (01) ==
PROVIDERS: Emergency Provider Emergency Medicine; PCP Family Medicine
DX: I10 Essential (primary) hypertension (principal); R07.9 Chest pain, unspecified; Z87.891 Personal history of nicotine dependence
CPT/HCPCS: 71045; 80053; 84484; 85025; 93005; 96374; 99283

== ENCOUNTER → 2021-11-25 08:48 | Outpatient (BNVA) | payer BC, SELFPAY | PROVIDERS: PCP Family Medicine; Visit Provider Family Medicine | DX: I10 Essential (primary) hypertension (principal); F33.1 Major depressive disorder, recurrent, moderate; E11.9 Type 2 diabetes mellitus without complications; G47.52 REM sleep behavior disorder | CPT/HCPCS: 80048; 83036 ==

== ENCOUNTER 2022-04-15 05:42 | Day surgery (SDC) | payer BC, SELFPAY ==
[2022-04-13 12:10] VITALS: BMI 36.8
[2022-04-15 06:11] VITALS: BP 109/79; PULSE 76; RESP 18; TEMP 36.1; O2SAT 95
[2022-04-15] MEDS: sodium chloride 0.9% 1,000 ML 30 ML IV (06:16)
[2022-04-15 06:23] LABS: Glucose Point of Care 180 mg/dL (70-110)
--- NOTE | 2022-04-15 06:46 | W.PM.OPSUD ---
Surgery/Procedure H&P Update DATE OF PROCEDURE: April 15, 2022 DATE H&P PERFORMED: 04/05/22 PLANNED PROCEDURE: Operation Date: 04/15/22 07:00 Proposed Procedures p EGD 91615 Colon 10345 ,Z86.010,R19.7,K21.9(Not Applicable) - DO abdi Cabrera Colonoscopy(Not Applicable) - Estuardo Jimenez DO
--- NOTE | 2022-04-15 06:48 | P.ANESASSM_ITS ---
Pre-Anesthetic Assessment Height/Weight: Height 1.63 m Weight 97.522 kg Temp Pulse Resp BP Pulse Ox O2 Del Method 97 F L 76 18 109/79 95 04/15/22 06:11 04/15/22 06:11 04/15/22 06:11 04/15/22 06:11 04/15/22 06:11 04/15/22 06:11 Operation Date: 04/15/22 07:00 Proposed Procedures p EGD 90827 Colon 48040 ,Z86.010,R19.7,K21.9(Not Applicable) - Estuardo Jimenez DO s Colonoscopy(Not Applicable) - Estuardo Jimenez DO Was Beta Олег taken within 24 hours: Yes Was Clonidine taken within 24 hours: Yes Last intake: Intake Last Liquid Date 04/14/22 Last Liquid Time 20:00 Last Solid Date 04/13/22 Last Solid Time 18:00 Social No alcohol and No tobacco Exam alert, oriented x 3, clear to auscultation bilaterally and regular rate & rhythm Airway Submandibular: within normal limits Cervical ROM: within normal limits Mallampati: Class III History/ROS No significant history except as noted and No significant complaints Pulmonary Sleep Apnea noncompliant with cpap CV/HEM Hypertension Chronic Renal Failure Hepatic None reported GI Gastroesophageal Reflux Disease Metabolic Diabetes Mellitus, Hyperlipidemia and Morbid Obesity Neuropsych Anxiety and Depression Anesthetic Plan ASA status: 3 Anesthesia: Anesthesia Evaluation and MAC Risk of > 500 ml blood loss (7ml/kg in children): Yes, adequate IV access and fluids planned Medications/Allergies Home Medications Medication Instructions Recorded Confirmed Last Taken Type flash glucose scanning reader #1 ea 10/23/19 04/05/22 Unknown Rx (FreeStyle Mar 14 Day [place]) flash glucose sensor (FreeStyle #1 ea 10/23/19 04/05/22 Unknown Rx Mar 14 Day Sensor kit) coenzyme I50-[id number] E 100 mg-100 1 cap PO DAILY 01/27/20 04/13/22 04/14/22 History unit capsule clonidine HCl 0.1 mg tablet 0.1 mg PO TID PRN hypertensive 06/25/21 04/13/22 03/25/22 Rx emergency #20 tabs amlodipine 5 mg tablet 5 mg PO DAILY 90 days #90 tabs 11/25/21 04/13/22 04/15/22 05:20 Rx metoprolol tartrate 50 mg tablet 50 mg PO BID #180 tabs 11/25/21 04/13/22 04/15/22 05:20 Rx clonazepam 2 mg tablet 2 mg PO BEDTIME #30 tabs 02/11/22 04/13/22 04/14/22 Rx memantine 10 mg tablet 10 mg PO BID #180 tabs 04/01/22 04/13/22 04/14/22 Rx pantoprazole 40 mg tablet,delayed 40 mg PO BID #180 tabs 04/07/22 04/13/22 04/14/22 Rx release simvastatin 20 mg tablet 20 mg PO DAILY 90 days #90 tabs 04/07/22 04/13/22 04/14/22 Rx estradiol 1 mg tablet 1 mg PO DAILY 04/13/22 04/13/22 04/14/22 History fenofibrate 54 mg tablet 54 mg PO DAILY 04/13/22 04/13/22 04/14/22 History levocetirizine 5 mg tablet 5 mg PO DAILY 04/13/22 04/13/22 03/25/22 History lisinopril 10 mg tablet 10 mg PO BID 04/13/22 04/13/22 04/14/22 History semaglutide 0.25 mg or 0.5 mg (2 0.5 mg SUBCUT .WEEKLY 04/13/22 04/13/22 03/25/22 History mg/1.5 mL) subcutaneous pen injector (Ozempic) venlafaxine 150 mg 150 mg PO DAILY 04/13/22 04/13/22 04/15/22 05:20 History capsule,extended release 24 hr venlafaxine 75 mg capsule,extended 75 mg PO DAILY 04/13/22 04/13/22 04/15/22 05:20 History release 24 hr Allergies Allergy/AdvReac Type Severity Reaction Status Date / Time Sulfa (Sulfonamide Allergy Unknown Verified 04/13/22 12:04 Antibiotics) zonisamide Allergy rash Verified 04/13/22 12:04 Current Medications Generic Name Dose Route Start Last Admin Trade Name Freq PRN Reason Stop Dose Admin Sodium Chloride 1,000 mls @ 30 mls/hr 04/15/22 06:15 04/15/22 06:16 Sodium Chloride 0.9% IV 04/16/22 06:14 30 mls/hr .Q24H RAYO Administration PFSH Anesthesia Medical History (Updated 04/05/22 @ 10:06 by Estuardo Jimenez DO) Acute adjustment disorder with anxiety Atypical chest pain Cervical disc disorder Common migraine without intractability Controlled REM sleep behavior disorder GERD (gastroesophageal reflux disease) History of colon polyps History of nonmelanoma skin cancer HTN (hypertension) Hyperlipidemia Hypersomnia Mild cognitive disorder Neck pain Obstructive sleep apnea Sprain of left ankle Stage 3a chronic kidney disease (CKD) Surgical menopause Type 2 diabetes mellitus, without long-term current use of insulin Surgical History H/O breast surgery Excision of right breast mass H/O dilation and curettage 2008 H/O knee surgery H/O knee surgery H/O left knee surgery 05/2020- left meniscus repair H/O tubal ligation H/O: hysterectomy History of lumpectomy of both breasts History of nasal surgery History of tonsillectomy and adenoidectomy Hx of colonoscopy with polypectomy 7 yrs ago S/P endometrial ablation [employer]- Dr. Cohen 2008 Family History Family/Other Breast cancer paternal aunt Mother Diabetes Heart disease Hypertension Father Heart disease Brother Heart disease Sister Heart disease Social History Smoking and tobacco status: former smoker Alcohol intake: never Data Anesthesia Cardiac Studies: No Data to Display
[2022-04-15 07:33] VITALS: BP 98/66; PULSE 77; RESP 18; TEMP 36.2; O2SAT 96
[2022-04-15 07:49] VITALS: BP 106/72; PULSE 72; RESP 18; O2SAT 96
--- NOTE | 2022-04-15 12:51 | ANE.PACU2 ---
Inpatient post-anesthesia follow up: Airway intact: Yes Vital signs: Temperature 97.2 F Pulse Rate 72 Respiratory Rate 18 Blood Pressure 106/72 Pulse Oximetry 96 Oxygen Delivery Me thod Room Air Oxygen Flow Rate Fraction of Inspir ed Oxygen Hydration adequate: Yes Nausea and vomiting: No Pain level: 2 Mental status: Baseline
== END 2022-04-15 08:10 | disposition home or self-care (01) ==
PROVIDERS: PCP Family Medicine; Visit Provider Surgery
PROC: 0DJ08ZZ Inspection of Upper Intestinal Tract, Via Natural or Artificial Opening Endoscopic (ICD-10-PCS; CPT 43235; principal; 2022-04-15 07:00)
PROC: 0DJD8ZZ Inspection of Lower Intestinal Tract, Via Natural or Artificial Opening Endoscopic (ICD-10-PCS; CPT 45378; 2022-04-15 07:00)
DX: Z86.010 Personal history of colon polyps (principal); R19.7 Diarrhea, unspecified; K21.9 Gastro-esophageal reflux disease without esophagitis; K63.5 Polyp of colon; K29.50 Unspecified chronic gastritis without bleeding; B96.81 Helicobacter pylori [H. pylori] as the cause of diseases classified elsewhere; G47.30 Sleep apnea, unspecified; Z91.199 Patient's noncompliance with other medical treatment and regimen due to unspecified reason; I10 Essential (primary) hypertension; E11.9 Type 2 diabetes mellitus without complications; E78.5 Hyperlipidemia, unspecified; E66.01 Morbid (severe) obesity due to excess calories; Z68.36 Body mass index [BMI] 36.0-36.9, adult
CPT/HCPCS: 36416; 43239; 45380; 45385; 82274; 82962; 83630; 87493; 87506; 88305; 88342; J2704; J7030

== ENCOUNTER → 2022-04-22 09:27 | Outpatient (BNVA) | payer BC, SELFPAY | PROVIDERS: PCP Family Medicine; Visit Provider Family Medicine | DX: I10 Essential (primary) hypertension (principal); E78.2 Mixed hyperlipidemia; E11.9 Type 2 diabetes mellitus without complications; W19.XXXA Unspecified fall, initial encounter; Y92.009 Unspecified place in unspecified non-institutional (private) residence as the place of occurrence of the external cause | CPT/HCPCS: 80053; 80061; 82043; 83036; 85025 ==

== ENCOUNTER → 2022-05-29 12:28 | Outpatient (BNVA) | payer BC, SELFPAY | PROVIDERS: PCP Family Medicine; Visit Provider Nurse Practitioner Family | DX: N39.0 Urinary tract infection, site not specified (principal) | CPT/HCPCS: 81000 ==

== ENCOUNTER → 2022-06-16 16:18 | Outpatient (BNVA) | payer BC, SELFPAY | PROVIDERS: PCP Family Medicine; Visit Provider Family Medicine | DX: R30.0 Dysuria (principal) | CPT/HCPCS: 81000 ==

== ENCOUNTER 2022-08-15 13:59 | Emergency (ER) | payer BC, SELFPAY ==
[2022-08-15 14:03] VITALS: BP 137/88; PULSE 76; RESP 18; TEMP 36.4; O2SAT 98; BMI 38.0
--- NOTE | 2022-08-15 14:11 | ECG_ITS ---
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 Measurements Intervals [place] Rate: 74 P: 57 MN: 154 QRS: 22 QRSD: 84 T: 19 QT: 375 QTc: 418 Interpretive Statements SINUS RHYTHM LOW QRS VOLTAGE IN PRECORDIAL LEADS [QRS DEFLECTION < 1.0 mV IN CHEST LEADS] Compared to ECG 06/21/2021 21:58:19 Low QRS voltage now present T-wave abnormality no longer present Electronically Signed On 08-15-2022 16:27:13 CDT by Jame Sullivan M.D. [id number]
--- NOTE | 2022-08-15 14:11 | XRR_ITS ---
PROCEDURE INFORMATION: Exam: XR Chest Exam date and time: 08/15/2022 2:19 PM Age: 57 years old Clinical indication: Pain; Angina pectoris; Additional info: jessica Nguyen am TECHNIQUE: Imaging protocol: Radiologic exam of the chest. Views: 1 view. COMPARISON: CR XR chest 1V portable [id number] 06/21/2021 8:54 PM FINDINGS: Lungs: Unremarkable. No consolidation. Pleural spaces: Unremarkable. No pleural effusion. No pneumothorax. Heart/Mediastinum: Unremarkable. No cardiomegaly. Bones/joints: Visualized osseous structures show no acute abnormality. Other findings: No significant change with previous exam. XR/XR chest 1V [id number] IMPRESSION: No acute cardiopulmonary abnormality.
[2022-08-15 16:33] LABS: Hematocrit 40.6 % (37.0-47.0); Hemoglobin 12.8 g/dL (11.5-15.3); Lymphocytes # 2.8 10^3/uL (0.8-4.8); Lymphocytes % 42.3 %; Mean Corpuscular HGB Conc 31.5 g/dL (30.0-36.0); Mean Corpuscular Hemoglobin 27.3 pg (28.0-34.0); Mean Corpuscular Volume 86.6 fl (81-99); Mean Platelet Volume 10.4 fL (7.4-10.4); Monocytes # 0.6 10^3/uL (0.2-0.9); Monocytes % 9.4 %; Neutrophils # 3.19 10^3/uL (1.8-7.7); Neutrophils % 48.1 %; Nucleated Red Blood Cells % 0 %; Platelet Count 220 10^3/cmm (130-400); Red Blood Count 4.69 10^6/uL (4.1-5.3); Red Cell Distribution Width 13.1 % (12.1-15.1); White Blood Count 6.6 10^3/uL (4.0-10.0)
[2022-08-15 16:50] LABS: Troponin(5th) Baseline 6 ng/L (0-10)
[2022-08-15 16:59] LABS: Alanine Aminotransferase 13 U/L (0-33); Albumin Level 4.6 g/dL (3.5-5.2); Alkaline Phosphatase 63 U/L (35-105); Anion Gap 16.9 (5-19); Aspartate Amino Transferase 17 U/L (0-32); Blood Urea Nitrogen 17 mg/dL (6-20); Calcium 9.2 mg/dL (8.5-10.5); Carbon Dioxide 24 mmol/L (22-29); Chloride 101 mmol/L (98-107); Globulin 2.8 g/dL (1.3-4.6); Glomerular Filtration Rate 51.2 mL/min (90-130); Glucose 117 mg/dL (65-115); Osmolality Calculated 289 mOsm/kg (285-295); Potassium 3.9 mmol/L (3.5-5.1); Sodium 138 mmol/L (136-145); Thyroid Stimulating Hormone 2.05 uIU/mL (0.27-4.20); Total Bilirubin 0.2 mg/dL (0.15-1.2); Total Protein 7.4 g/dL (6.6-8.7)
[2022-08-15 18:00] VITALS: O2SAT 98
--- NOTE | 2022-08-15 18:39 | ED_ITS ---
HPI - Chest Pain General: Chief Complaint: Chest Pain Stated Complaint: sob & chest pain Time Seen by Provider: 08/15/22 18:27 History of Present Illness: Patient is a 57-year-old female who comes to the ED with chest pain. Chest pain started while she was laying down this morning and woke her up. Pain was located in the left upper chest and it radiated to the middle left chest. She says the pain was more severe when it first started and has waxed and waned throughout the day. He describes it as an aching pain with some sharp intensity on occasion. Currently here in the ED she rates the pain a 1 out of 10. Denies any tenderness to the chest. She states that pain worsens if she takes a deep breath or with certain movements of her torso. She reports having mild chest pain like this has been on and off for the past several months, but today the pain was a lot worse. History of hypertension, diabetes, GERD. Denies any chest pain, shortness of breath, fevers, abdominal pain, nausea/vomiting, bladder or bowel symptoms. Associated symptoms: Deny abdominal pain, dyspnea, fever(s), nausea, palpitations or vomiting Review of Systems Const: Denies: fever(s), chills or fatigue Eyes: Denies: change in vision or eye discomfort ENMT: Denies: throat pain, odynophagia, nasal discharge or nasal congestion Card: Reports: chest pain; Denies: palpitations, edema, swelling of feet/ankles, dyspnea on exertion or orthopnea Resp: Denies: dyspnea, productive cough or non-productive cough GI: Denies: abdominal pain, nausea, vomiting, diarrhea, constipation or hematochezia : Denies: flank pain, dysuria or hematuria Musc: Denies: neck pain, back pain or extremity swelling Skin/Breast: Denies: rash or new lesions Neuro: Denies: headache(s), numbness in extremities or weakness in extremities PFS ED PFSH: Medical History Acute adjustment disorder with anxiety Atypical chest pain Cervical disc disorder Common migraine without intractability Controlled REM sleep behavior disorder GERD (gastroesophageal reflux disease) History of colon polyps History of nonmelanoma skin cancer HTN (hypertension) Hyperlipidemia Hypersomnia Mild cognitive disorder Neck pain Obstructive sleep apnea Sprain of left ankle Stage 3a chronic kidney disease (CKD) Surgical menopause Type 2 diabetes mellitus, without long-term current use of insulin Surgical History H/O breast surgery Excision of right breast mass H/O dilation and curettage 2008 H/O knee surgery H/O knee surgery H/O left knee surgery 05/2020- left meniscus repair H/O tubal ligation H/O: hysterectomy History of esophagogastroduodenoscopy (EGD) 04/15/22 History of lumpectomy of both breasts History of nasal surgery History of tonsillectomy and adenoidectomy Hx of colonoscopy 04/15/22 Hx of colonoscopy with polypectomy 7 yrs ago S/P endometrial ablation [employer]- Dr. Cohen 2008 Family History Family/Other Breast cancer paternal aunt Mother Diabetes Heart disease Hypertension Father Heart disease Brother Heart disease Sister Heart disease Social History Smoking and tobacco status: former smoker Alcohol intake: never Substance/Drug Use: never Physical Exam Const: COMMON NORMALS: no acute distress, patient oriented x3 and alert HENMT: COMMON NORMALS: normocephalic HEAD & SCALP: normocephalic MOUTH: Normal oral and palatal mucosa present THROAT: posterior oropharynx normal and uvula midline Neck/C-Spine: COMMON NORMALS: supple GENERAL: Yes normal visual inspection Resp: COMMON NORMALS: normal respiratory effort, No retractions, No use of accessory muscles and clear to auscultation bilaterally AUSCULTATION: clear to auscultation bilaterally Cardio: COMMON NORMALS: regular rate, regular rhythm, S1 normal heart sound present, S2 normal heart sound present, No gallops present (Cardio), No clicks present (Cardio), No murmurs present (Cardio) and Peripheral pulses 2+ throughout RATE: regular rate RHYTHM: regular rhythm HEART SOUNDS: S1 normal heart sound present and S2 normal heart sound present PERIPHERAL PULSES: Peripheral pulses 2+ throughout GI: COMMON NORMALS: Normal to inspection, nondistended, normoactive bowel sounds present, Soft to palpation, non-tender and no masses PALPATION: Yes Soft to palpation : COMMON NORMALS: Yes no CVA tenderness BLADDER/KIDNEY EXAM: Yes no CVA tenderness Back/Pelvis: COMMON NORMALS: no CVA tenderness Extremity: COMMON NORMALS: normal to inspection Neuro: COMMON NORMALS: patient oriented x3 SENSORIUM/ORIENTATION: Yes alert GAIT: Yes Normal gait present Skin: GENERAL SKIN EXAM: dry skin Course Vital Signs: Vital signs: Vital Signs Temperature 97.6 F 08/15/22 14:03 Pulse Rate 76 08/15/22 14:03 Respiratory Rate 18 08/15/22 14:03 Blood Pressure 137/88 08/15/22 14:03 Pulse Oximetry 99 08/15/22 20:00 Oxygen Delivery Me thod Room Air 08/15/22 20:00 MDM - Chest Pain Medical Decision Making Patient is a 57-year-old female who comes to the ED with chest pain. Chest pain started while she was laying down this morning and woke her up. Pain was located in the left upper chest and it radiated to the middle left chest. She says the pain was more severe when it first started and has waxed and waned throughout the day. He describes it as an aching pain with some sharp intensity on occasion. Currently here in the ED she rates the pain a 1 out of 10. Denies any tenderness to the chest. She states that pain worsens if she takes a deep breath or with certain movements of her torso. She reports having mild chest pain like this has been on and off for the past several months, but today the pain was a lot worse. History of hypertension, diabetes, GERD. Denies any chest pain, shortness of breath, fevers, abdominal pain, nausea/vomiting, bladder or bowel symptoms. Vitals are stable. Exam is benign and patient appears nontoxic and in no acute distress. Rest of exam is benign. CBC and CMP are unremarkable. EKG shows normal sinus rhythm, [address] segment elevation or depression seen. Baseline troponin 6 and 2-hour troponin was 6 as well. Chest x-ray showed no acute findings. Patient has a heart score of 3, which put s her in the very low risk category. I placed an order with case management for patient to be set up with a outpatient cardiac stress test. Written outpatient order filled out and placed in case management's been. Patient was diagnosed with atypical chest pain and was stable for discharge home. Told to follow-up with her PCP within the next week for reevaluation and strict return ED precautions given. Patient understood and agreed with plan. Lab Data I reviewed the patient's lab results. 08/15/22 16:12 08/15/22 16:12 Radiology Impressions Chest X-Ray 08/15/22 14:11 IMPRESSION: No acute cardiopulmonary abnormality. Laboratory Results WBC 6.6 10^3/uL (4.0-10.0) 08/15/22 16:12 RBC 4.69 10^6/uL (4.1-5.3) 08/15/22 16:12 Hgb 12.8 g/dL (11.5-15.3) 08/15/22 16:12 Hct 40.6 % (37.0-47.0) 08/15/22 16:12 MCV 86.6 fl (81-99) 08/15/22 16:12 MCH 27.3 pg (28.0-34.0) L 08/15/22 16:12 MCHC 31.5 g/dL (30.0-36.0) 08/15/22 16:12 RDW 13.1 % (12.1-15.1) 08/15/22 16:12 Plt Count 220 10^3/cmm (130-400) 08/15/22 16:12 MPV 10.4 fL (7.4-10.4) 08/15/22 16:12 Neut % (Auto) 48.1 % 08/15/22 16:12 Lymph % (Auto) 42.3 % 08/15/22 16:12 [place] % (Auto) 9.4 % 08/15/22 16:12 Eos % (Auto) 0.0 % 08/15/22 16:12 Baso % (Auto) 0.0 % 08/15/22 16:12 Neut # (Auto) 3.19 10^3/uL (1.8-7.7) 08/15/22 16:12 Lymph # (Auto) 2.8 10^3/uL (0.8-4.8) 08/15/22 16:12 [place] # (Auto) 0.6 10^3/uL (0.2-0.9) 08/15/22 16:12 Eos # (Auto) 0.0 10^3/uL (0.0-0.8) 08/15/22 16:12 Baso # (Auto) 0.0 10^3/uL (0.0-0.1) 08/15/22 16:12 Nucleated RBC % (auto) 0 % 08/15/22 16:12 Nucleated RBCs # 0.0 /100WBC 08/15/22 16:12 D-Dimer 0.40 ug/mIFEU (0-0.59) 08/15/22 16:12 Sodium 138 mmol/L (136-145) 08/15/22 16:12 Potassium 3.9 mmol/L (3.5-5.1) 08/15/22 16:12 Chloride 101 mmol/L (98-107) 08/15/22 16:12 Carbon Dioxide 24 mmol/L (22-29) 08/15/22 16:12 Anion Gap 16.9 (5-19) 08/15/22 16:12 BUN 17 mg/dL (6-20) 08/15/22 16:12 Creatinine 1.1 mg/dL (0.5-0.9) H 08/15/22 16:12 GFR Calculation 51.2 mL/min (90-130) L 08/15/22 16:12 Glucose 117 mg/dL (65-115) H 08/15/22 16:12 Calculated Osmolality 289 mOsm/kg (285-295) 08/15/22 16:12 Calcium 9.2 mg/dL (8.5-10.5) 08/15/22 16:12 Total Bilirubin 0.2 mg/dL (0.15-1.2) 08/15/22 16:12 AST 17 U/L (0-32) 08/15/22 16:12 ALT 13 U/L (0-33) 08/15/22 16:12 Alkaline Phosphatase 63 U/L (35-105) 08/15/22 16:12 Troponin T Baseline 6 ng/L (0-10) 08/15/22 16:12 Troponin T 120 Minute 6.75 ng/L (0-10) 08/15/22 19:25 Delta Troponin T 0.75 ABS# (0-10) 08/15/22 19:25 Total Protein 7.4 g/dL (6.6-8.7) 08/15/22 16:12 Albumin 4.6 g/dL (3.5-5.2) 08/15/22 16:12 Globulin 2.8 g/dL (1.3-4.6) 08/15/22 16:12 TSH 2.05 uIU/mL (0.27-4.20) 08/15/22 16:12 EKG Data EKG 1: EKG interpretation date: 08/15/22 Interpretation: Sinus rhythm, 74 bpm, no ST segment elevation or depression seen. Discharge Plan Discharge Patient Disposition: Home Clinical Impression: Atypical chest pain Condition: Stable Prescriptions: No Action coenzyme [id number] E 100-100 mg-unit capsule 1 cap PO DAILY (DME) FreeStyle Mar 14 Day Sensor Kit See Rx Instructions .ROUTE .MEDSUPPLY Qty: 1 4RF Rx Instructions: As directed (DME) FreeStyle Mar 14 Day [place] Misc See Rx Instructions .ROUTE .MEDSUPPLY Qty: 1 0RF Rx Instructions: As directed tizanidine 2 mg tablet 2 mg PO Q8H PRN (Reason: muscle spasticity) Qty: 60 0RF fluconazole [Diflucan] 150 mg tablet 150 mg PO Q3D Qty: 2 0RF Januvia 100 mg tablet 100 mg PO DAILY Qty: 90 0RF memantine 10 mg tablet 10 mg PO BID Qty: 180 1RF pantoprazole 40 mg tablet,delayed release (DR/EC) 40 mg PO BID Qty: 180 1RF simvastatin 20 mg tablet 20 mg PO DAILY 90 Days Qty: 90 1RF amlodipine 5 mg tablet See Rx Instructions .ROUTE .COMPLEX Qty: 90 1RF Dose Instruction: TAKE 1 TABLET BY MOUTH DAILY FOR 90 DAYS Rx Instructions: TAKE 1 TABLET BY MOUTH DAILY FOR 90 DAYS estradiol 1 mg tablet 1 mg PO DAILY Qty: 90 3RF Rx Instructions: take 1 tab po daily. clonazepam 2 mg tablet 2 mg PO BEDTIME Qty: 30 5RF metoprolol tartrate 50 mg tablet See Rx Instructions .ROUTE .COMPLEX Qty: 180 1RF Dose Instruction: TAKE 1 TABLET BY MOUTH TWICE A DAY Rx Instructions: TAKE 1 TABLET BY MOUTH TWICE A DAY lisinopril 10 mg tablet 10 mg PO BID Rx Instructions: TAKE 1 TABLET BY MOUTH TWICE A DAY fenofibrate 54 mg tablet 54 mg PO DAILY Rx Instructions: TAKE 1 TABLET BY MOUTH EVERY DAY venlafaxine 150 mg capsule,extended release 24hr 150 mg PO DAILY Qty: 90 1RF Rx Instructions: TAKE 1 CAPSULE BY MOUTH EVERY DAY TAKE WITH 75MG venlafaxine 75 mg capsule,extended release 24hr 75 mg PO DAILY Qty: 90 1RF Rx Instructions: TAKE 1 CAPSULE BY MOUTH EVERY DAY levocetirizine 5 mg tablet 5 mg PO DAILY Qty: 90 1RF Rx Instructions: TAKE 1 TABLET BY MOUTH EVERY DAY Discharge Orders: Discharge ED (Routine); Ordered 08/15/22 Ordered By: Ash Mejia Referrals: Yessi Valenzuela DO [Primary Care Provider] - Discharge Diet: Regular Discharge Activity: Increase activity as tolerated Patient Instructions: Chest Pain (ED) Activity Restrictions/Additional Instructions: Follow-up with PCP within the next week for reevaluation. Case management should contact you in the next several days to set up an appointment for outpatient cardiac stress test. Continue taking all home medications as previously prescribed. Return to the ER or your medical provider if condition worsens. Please read and understand discharge instructions. Thank you for choosing [facility] for your healthcare needs today. Please realize this is an emergency room and that we are providing you with a medical screening exam and this may not be complete and all inclusive of all the testing and or work up that you may need to determine your ailment or severity of your illness. It is very important that you follow up as instructed or that you return to the Emergency Department should you have concerns or if your condition changes or worsens in any way. Coding Level of Care Code ED [employer]er for Petey Hutchins
[2022-08-15] MEDS: aspirin 81 mg Chew Tablet 324 MG PO (19:05)
[2022-08-15 20:00] VITALS: O2SAT 99
[2022-08-15 20:15] LABS: Troponin 5 2HR 6.75 ng/L (0-10)
[2022-08-15 20:30] LABS: Troponin 5 2HR Delta 0.75 ABS# (0-10)
--- NOTE | 2022-08-16 08:20 | PC.NURSE ---
Addendum entered by Lesa Ny 09/18/22 06:51: Patient had a stress test - patient did attend stress test Addendum entered by Lesa Ny 08/23/22 14:38: Patient has an outpatient stress test scheduled for Monday, September 12, 2022 at 8:15. Original Note: Patient seen in the Ed on 08/15/22 for chest pain and referred for stress test. Fax sent to centralized scheduling. They will call patient with an appt.
== END 2022-08-15 20:46 | disposition home or self-care (01) ==
PROVIDERS: Physician Assistant; Emergency Provider Physician Assistant; PCP Family Medicine
DX: R07.89 Other chest pain (principal); Z87.891 Personal history of nicotine dependence; E78.5 Hyperlipidemia, unspecified; I12.9 Hypertensive chronic kidney disease with stage 1 through stage 4 chronic kidney disease, or unspecified chronic kidney disease; E11.22 Type 2 diabetes mellitus with diabetic chronic kidney disease; N18.31 Chronic kidney disease, stage 3a
CPT/HCPCS: 36415; 71045; 80053; 84443; 84484; 85025; 85378; 93005; 99285

== ENCOUNTER 2022-09-12 08:04 | Outpatient (CLI) | payer BC, SELFPAY ==
--- NOTE | 2022-09-12 08:30 | ECG_ITS ---
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 Interpretive Statements NAME OF STUDY: LEXISCAN SESTAMIBI STRESS TEST INDICATION: [Atypical Chest Pain] PROCEDURE: At the baseline, the blood pressure was 118/84 bpm with a heart rate of 68 bpm. The electrocardiogram showed sinus rhythm, normal ST and T's. ??? The Lexiscan was infused over a period of 20 seconds. A total of 0.4 milligrams of Lexiscan was infused. The stress phase was continued for a total of 5 minutes. Heart rate at the end of the stress phase was 67 bpm and blood pressure was not measured. The EKG at the peak infusion revealed ni significant ST-T wave changes. ??? Sestamibi was injected 20 seconds after the Lexiscan infusion. ??? Blood pressure at the end of the recovery phase was 112/85 mm Hg with a heart rate of 73 beats per minute. ??? CONCLUSION: 1. No significant EKG changes with the LexiScan infusion. 2. No LexiScan induced chest pain or cardiac arrhythmia. 3. Normal blood pressure and heart rate response. 4. Sestamibi/sestamibi perfusion scan pending; see separate report. Electronically Signed On 09-16-2022 17:00:03 CDT by Ángela Mcgowan M.D. [email or web address]
--- NOTE | 2022-09-12 08:30 | NMCV_ITS ---
NM wanda perf SPECT r/s* [id number] Rajni Duque Age: 57 Gender: F : 1965 Exam Date: 09/12/2022 09:17 Ordering Phys: Yessi Valenzuela DO Technologist: HSYANN Moore Exam Location: [facility] Indications: CHEST PAIN STRESS TEST Please see separate stress test report in [facility] for full findings IMAGE PROTOCOL Rest/Stress 1 Lexiscan Day Radiopharmaceutical Dose (mCi) Administration Site Administered by Rest: Tc-99m 11.0 IV SHYANN Moore Sestamibi Stress:Tc-99m 32.3 IV SHYANN Dye Sestamibi Rest: 12-Sep-2022 60 Discovery 630 Stress: 12-Sep-2022 30 Discovery 630 0.4mg Lexiscan. Images obtained in supine and prone position. SPECT RESULTS Technical Quality: Excellent Raw Data Analysis: Normal Image Corrections: No attenuation or motion correction applied Summed Stress Score: 2 Summed Rest Score: 0 Summed Difference Score: 2 PERFUSION FINDINGS SPECT images demonstrate homogeneous tracer distribution throughout the myocardium. FUNCTIONAL RESULTS (calculated via Gated SPECT) Stress Image LV EF (%): 81 Stress EDV (mL):74 TID: 1 Stress ESV (mL):14 FUNCTIONAL FINDINGS: The left ventricle is normal in size. Transient Ischemia Dilatation of 1. The left ventricular ejection fraction is normal with a value of 81%. There is normal left ventricular wall thickening. IMPRESSIONS 1. Myocardial perfusion imaging is normal. 2. Overall left ventricular systolic function is normal without regional wall motion abnormalities, LVEF=81%. 3. EKG portion of the study will be reported separately. Ángela Mcgowan MD (Electronically Signed) Final Date: 14 September 2022 16:08 S
[2022-09-12 08:31] VITALS: BMI 37.8
[2022-09-12] MEDS: regadenoson 0.4 Mg/5 ml Syringe IVP (09:53)
[2022-09-12 10:17] VITALS: BP 117/74; PULSE 77
--- NOTE | 2022-09-12 13:32 | MM_ITS ---
WS: [id number] BILATERAL 3D TOMOSYNTHESIS DIGITAL SCREENING MAMMOGRAPHY WITH CAD CLINICAL INFORMATION: SCREENING HISTORY: Screening mammogram. No current complaints. COMPARISON: 2020 TECHNIQUE: Bilateral CC and MLO views. FINDINGS: The breasts are composed of heterogeneous fibroglandular density tissue, which can limit the detectio n of small underlying mass lesions. Again seen are multiple bilateral ill-defined and partially obscu red nodules in the LEFT greater than RIGHT breast. LEFT breast was previously assessed by ultrasound demonstrated multiple cysts and suspected fibroadenomas or complex cysts. Largest nodule LEFT breast at the 11:00 position today measures 3.1 cm slightly progressed compared to previous. Stable punctate and clustered calcifications. No new suspicious mass, asymmetry, calcifications, or architectural distortion. No evidence of malign farhat. MM/[place] [id number] IMPRESSION: BI-RADS: 2-Benign FOLLOW UP: 1 Year Follow-up Recommend return to annual screening mammography.
== END 2022-09-12 08:05 | disposition home or self-care (01) ==
LOC: CDL 08:07
PROVIDERS: PCP Family Medicine; Visit Provider Family Medicine
DX: R07.89 Other chest pain (principal); Z12.31 Encounter for screening mammogram for malignant neoplasm of breast
CPT/HCPCS: 36415; 77063; 77067; 78452; 80053; 83036; 93017; 96374; A9500; J2785

== ENCOUNTER 2022-09-22 10:46 | Outpatient (CLI) | payer BC, SELFPAY ==
--- NOTE | 2022-09-22 11:35 | XR_ITS ---
WS: [id number] Exam: XR foot RT min 3V* [id number] Date/Time of Exam: 09/22/2022 11:41 AM Reason For Exam: right heel pain No acute fracture or dislocation noted. Early degenerative change at the first MP joint. Tiny plantar heel spur. No soft tissue foreign bodies. XR/XR foot RT min 3V* [id number] IMPRESSION: 1. Tiny heel spur. 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 2. No other significant finding.
== END 2022-09-22 10:47 | disposition home or self-care (01) ==
PROVIDERS: PCP Family Medicine; Visit Provider Family Medicine
DX: M19.071 Primary osteoarthritis, right ankle and foot (principal); M77.31 Calcaneal spur, right foot
CPT/HCPCS: 73630